=== PATIENT | female | born 1980 | race Two or more races ===

== ENCOUNTER 2018-06-14 14:25 | Emergency (ER) | payer OTHER ==
[~2018-06-14] VITALS: Ht 162.6 cm; Wt 74.8 kg
[2018-06-14] MEDS ORDERED: ACETAMINOPHEN ES 500 MG TABLET ONE (14:49)
[2018-06-14] MEDS ORDERED: OLANZAPINE 5 MG TABLET ONE (14:49)
[2018-06-14] MEDS ORDERED: OLANZAPINE 5 MG TABLET PO ONE (15:00)
[2018-06-14] MEDS ORDERED: ACETAMINOPHEN 325 MG TABLET PO ONE (15:00)
[2018-06-14 15:01] LABS: BASOPHILS # (AUTO) 0.1 /CMM (0.0-0.2); BASOPHILS % (AUTO) 1.1 % (0.0-2.0); EOSINOPHILS % (AUTO) 0.9 % (0.0-6.0); HEMATOCRIT 38 % (33-45); HEMOGLOBIN 12.3 g/dL (11.5-14.8); LYMPHOCYTES # (AUTO) 1.1 /CMM (0.8-4.8); MEAN CORPUSCULAR HEMOGLOBIN 28 PG (26.0-33.0); MEAN CORPUSCULAR HGB CONC 33 g/dl (31.0-36.0); MEAN CORPUSCULAR VOLUME 87 fL (82-100); MONOCYTES # (AUTO) 0.3 /CMM (0.1-1.30); MONOCYTES % (AUTO) 3.4 % (2.0-12.0); NEUTROPHILS # (AUTO) 7.2 /CMM (1.8-8.9); NEUTROPHILS % (AUTO) 82.6 % (43.0-81.0); PLATELET COUNT (AUTO) 331 /CMM (150-450); RED BLOOD CELL COUNT(AUTO) 4.36 MIL/uL (4.0-5.2); WHITE BLOOD COUNT (AUTO) 8.8 K/uL (4.3-11.0)
[2018-06-14 15:21] LABS: ALANINE AMINOTRANSFERASE 21 U/L (12-78); ALBUMIN 3.7 g/dL (3.4-5.0); ALKALINE PHOSPHATASE 70 U/L (46-116); ASPARTATE AMINOTRANSFERASE 13 U/L (15-37); BILIRUBIN,DIRECT 0.2 mg/dL (0.0-0.2); BILIRUBIN,TOTAL 0.7 mg/dL (0.2-1.0); CALCIUM, SERUM 8.7 mg/dL (8.5-10.1); CARBON DIOXIDE 25 mmol/L (21-32); CHLORIDE 102 mmol/L (98-107); GLUCOSE 148 mg/dL (74-106); POTASSIUM 3.2 mmol/L (3.5-5.1); SODIUM SERUM 138 mmol/L (136-145); TOTAL PROTEIN, SERUM 7.6 g/dL (6.4-8.2); UREA NITROGEN, BLOOD 17 mg/dL (7-18)
[2018-06-14 15:40] LABS: ACETAMINOPHEN 0 ug/ml (10-30); ALCOHOL, BLOOD < 3 mg/dL (0-0); SALICYLATE 1.5 mg/dL (2.8-20.0)
[2018-06-14] MEDS ORDERED: POTASSIUM CHLORIDE 20 MEQ TAB.PRT.SR PO ONE ×2 (17:00→17:56)
[2018-06-14 17:01] LABS: APPEARANCE,URINE Cloudy (CLEAR); BILIRUBIN,URINE SMALL (NEGATIVE); BLOOD, URINE Large Ery/uL (NEGATIVE); COLOR,URINE Amber (YELLOW); KETONES,URINE Trace (NEGATIVE); LEUKOCYTE ESTERASE ,URINE Small (NEGATIVE); NITRITE, URINE Positive (NEGATIVE); PH,URINE 5.5 (5.0-8.0); PROTEIN,URINE 100 mg/dl (NEGATIVE); UGLUCOSE Negative (NEGATIVE)
[2018-06-14 17:15] LABS: RBC,URINE 21-50 /HPF (0-2)
[2018-06-14 17:16] LABS: BACTERIA,URINE 3+ /HPF (None Seen); SQUAMOUS EPITHELIAL CELL,UR Few /HPF (None Seen)
[2018-06-14] MEDS ORDERED: NITROFURANTOIN/NITROFURAN MAC 100 MG CAPSULE PO ONE (17:30)
[2018-06-14] MEDS ORDERED: NITROFURANTOIN/NITROFURAN MAC 100 MG CAPSULE ONE (17:56)
[2018-06-14 23:52] VITALS: BP 129/75
== END 2018-06-14 23:53 | disposition home or self-care (01) ==
LOC: EDBD 14:27 → ER 14:27
DX: F28 Other psychotic disorder not due to a substance or known physiological condition (principal); F15.10 Other stimulant abuse, uncomplicated; N39.0 Urinary tract infection, site not specified; F12.90 Cannabis use, unspecified, uncomplicated; E87.6 Hypokalemia; Z72.821 Inadequate sleep hygiene
CPT/HCPCS: 36415; 80048; 80076; 80305; 80329; 81001; 84703; 85025; 87077; 87086; 87186; 99284; A4606; G0480 ×2; Z7610; 81000-TC

== ENCOUNTER 2018-07-28 09:29 | Emergency (ER) | payer OTHER ==
[~2018-07-28] VITALS: Ht 162.6 cm; Wt 63.5 kg
[2018-07-28 09:29] VITALS: BP 124/91
--- NOTE | 2018-07-28 09:38 | NUR ---
ASSESSED BY DR RDZ WHILE IN [facility]. NO SIGNS OF DISTRESS OR TRAUMA NOTED. NO COMPLAINTS. DISCHARGED TO [facility] IN STABLE CONDITION.
== END 2018-07-28 10:02 ==
LOC: ER 09:31
DX: F15.10 Other stimulant abuse, uncomplicated (principal)
CPT/HCPCS: A4606; Z7610

== ENCOUNTER 2018-07-28 12:08 | Emergency (ER) | payer OTHER ==
[~2018-07-28] VITALS: Ht 162.6 cm; Wt 63.5 kg
--- NOTE | 2018-07-28 12:15 | NUR ---
PT BIB RA IN [employer] [facility] STATING SHE IS . PER [employer], PT KICKED OFFICERS AND NEEDS OK TO BOOK. NO SIGNS OF VISIBLE TRAUMA OR INJURIES NOTED. PT DENIES PHYSICAL COMPLAINTS ASIDE FROM COMPLAINING ABOUT THE HANDCUFFS. RESP EVEN UNLABORED. NAD NOTED. IN ER BED 07.
--- NOTE | 2018-07-28 12:33 | NUR ---
lab draw completed for hcg
--- NOTE | 2018-07-28 13:31 | NUR ---
DISCHARGED TO [employer] IN STABLE CONDITION.
[2018-07-28 13:32] VITALS: BP 113/85
== END 2018-07-28 13:32 ==
LOC: ER 12:10
DX: Z32.02 Encounter for pregnancy test, result negative (principal)
CPT/HCPCS: 36415; 84702-TC; A4606; Z7610